=== PATIENT | male | born 1970 | race Caucasian/White ===

== ENCOUNTER → 2018-05-23 14:51 | Outpatient (CLI) | payer OTHER, SELFPAY ==
--- NOTE | 2018-05-23 14:54 | ECHOD_ITS ---
Reason For Study: Abnormal heart sounds Procedure This was a 2D Doppler, Color Flow transthoracic echocardiogram. Exam performed in department. Left Ventricle Normal size and thickness. The estimated ejection fraction is 65 %. Stage 1 diastolic dysfunction. No regional wall motion abnormalities noted. Right Ventricle Normal size and thickness. Normal systolic function. Atria Normal left atrium. Normal right atrium. Normal atrial septum. Mitral Valve The mitral valve is structurally normal. No prolapse or stenosis seen. Tricuspid Valve Normal tricuspid valve. Aortic Valve Trisinus/trileaflet aortic valve. Trivial aortic valve insufficiency. Pulmonic Valve Normal pulmonic valve. Great Vessels Normal aortic root. Normal arch. Normal inferior vena cava. Inferior vena cava collapse with sniff. Pericardium/Pleural No pericardial effusion. MMode/2D Measurements & Calculations LVIDd: 5.2 cm IVSd: 1.2 cm Ao root diam: 3.3 cm LVIDs: 3.4 cm LVPWd: 1.2 cm RVDd: 3.8 cm FS: 34.8 % LAV(MOD-bp): 59.4 ml LA A4 area: 19.7 cm2 LA dimension(2D): 3.4 cm LAV(MOD-bp) Indexed: 27.6 ml/m2 LAV(MOD-sp2): 59.6 ml LAV(MOD-sp4): 59.1 ml RA A4 area: 17.4 cm2 Doppler Measurements & Calculations MV E max ghassan: 99.8 cm/sec Lat Peak E' Ghassan: 9.6 cm/sec Med Peak E' Ghassan: 10.7 cm/sec MV A max ghassan: 114.2 cm/sec E/E' lat: 10.4 E/E' med: 9.4 MV E/A: 0.87 Ao V2 max: 168.4 cm/sec LV V1 max: 155.1 cm/sec PA V2 max: 126.3 cm/sec Ao max P.3 mmHg LV V1 max P.6 mmHg Interpretation Summary The estimated ejection fraction is 65 %. Stage 1 diastolic dysfunction. Trivial aortic valve insufficiency. There is no comparison study available. Ordering Physician: Rosanne Lewis Referring Physician: Rosanne Lewis Performed By: Alison Barron, DAVIS, RVT
== END ==
PROVIDERS: Family Provider Internal Medicine; PCP Internal Medicine; Referring Provider Internal Medicine; Visit Provider Internal Medicine
DX: R01.2 Other cardiac sounds (principal)
CPT/HCPCS: 93306

== ENCOUNTER → 2021-03-31 12:25 | Outpatient (CLI) | payer SELFPAY, OTHER ==
--- NOTE | 2021-03-31 12:32 | CT_ITS ---
STUDY: CT CHEST WITHOUT CONTRAST REASON FOR EXAM: Male, 50 years old. SCREEING RADIATION DOSAGE (If Supplied By Facility): CTDIvol = ( 12.19 ) mGy, DLP = ( 219.42 ) mGycm TECHNIQUE: Transaxial imaging was performed without the administration of intravenous contrast material. Individualized dose optimization techniques were used for this CT. COMPARISON: None. FINDINGS: Limited axial CT images of the chest were obtained through the heart for performance of coronary artery calcium scoring which will be reported by cardiology. This is not a comprehensive CT of the chest. 1.5 cm groundglass nodule in the periphery of the superior segment of the right lower lobe lungs on image 9 and follow-up CT chest is recommended in 6 months to document stability or resolution. There are some other areas of groundglass opacity within the periphery of the lower lobes and clinical correlation is recommended to exclude covert 19 pneumonia. There is no demonstrated pleural abnormality. Normal heart and pericardium. There are calcifications of the coronary arteries. Normal mediastinum. Normal hilar regions. Normal unenhanced pulmonary arteries. Normal aorta arch and descending thoracic aorta. Normal osseous structures. There is no demonstrated abnormality of the visualized upper abdomen. CT/Limited Chest CT w/CCTA IMPRESSION: Bilateral patchy groundglass opacities consistent with subsegmental atelectasis or pneumonitis. Findings may be secondary to cope and 19 pneumonia and clinical correlation is recommended. One area in the superior segment of the right lower lobe appears more nodular and follow-up CT is recommended in 6 months to document resolution. Electronically Signed: Rick Sutherland MD at 16:16 EST Tel , Service support ,
[2021-03-31 12:40] VITALS: BP 125/78; PULSE 57; RESP 14; O2SAT 98; BMI 28.5
--- NOTE | 2021-03-31 15:58 | CA.SCORE ---
Calcium Scoring Date of Study:: 03/31/21 Coronary Calcium Scoring: High-resolution Computed Tomographic imaging of the chest was performed on 03/31/2021 with particular attention paid to the coronary arteries. Images from the examination were analyzed for the presence and extent of coronary artery calcification , using coronary calcium quantification software. The patient tolerated the procedure well and there were no complications. The results of the coronary calcification analysis are provided below. Findings Coronary Artery Left Main (LM): 0.79 Left Anterior Descending (LAD): 8.34 Left Circumflex (LCX): 37.4 Right Coronary Artery (RCA): 82.7 Total Agatston Score: 129.23 Percentile Ranking: According to prepublished reference tables between 75% and 90% of patients of the same gender/similar age had the same/lower scores. Calcium Scoring Interpretation: 0 No identifiable atherosclerotic plaque. Very low cardiovascular disease risk. <5% chance of presence coronary artery disease A Negative Examination 1-10 Minimal Plaque burden. Significant coronary artery disease very unlikely. 11-100 Mild plaque burden. Likely mild or minimal coronary atherosclerosis. 101-400 Moderate plaque burden Moderate non-obstructive coronary artery disease highly likely. Over 400 Extensive plaque burden. High likelihood of at least one significant coronary stenosis (>50% diameter) Calcium Score: 101 - 400 Moderate non-obstructive coronary artery disease highly like Conclusion: Continue cardiovascular risk factor duration and care as deemed appropriate. This note was generated using a voice recognition system and there may be incorrect words, spelling or punctuation that were not noted when reviewing the office note prior to saving.
== END ==
PROVIDERS: PCP Internal Medicine; Referring Provider Internal Medicine; Visit Provider Internal Medicine
DX: Z13.6 Encounter for screening for cardiovascular disorders (principal); I10 Essential (primary) hypertension
CPT/HCPCS: 75571; 76380

== ENCOUNTER 2021-07-04 06:08 | Outpatient (CLI) | payer SELFPAY, OTHER ==
--- NOTE | 2021-07-04 13:20 | STRESSREP ---
Stress Test Report Date: 07-04-2021 Procedure: Exercise tolerance test/imaging study Indications: Abnormal cardiac function test Consent: Per the patient Procedure: The patient exercised on a Miguel protocol for 10 minutes and 30 seconds completing Stage III and 1 minute and 30 seconds of Stage IV achieving a peak heart rate of 171 bpm (101% predicted maximal heart rate) with a peak blood pressure 198/90 mmHg and a peak MET capacity of 13 METs. The baseline ECG demonstrated sinus bradycardia. The peak exercise ECG demonstrated no obvious ECG changes. There was a rare PAC/repetitive PAC during exercise and a rare PVC during recovery. The functional capacity was considered good. There was no complaint of chest discomfort during exercise or recovery. The examination was discontinued secondary to dyspnea. Impression: 1. Technically adequate (percent predicted maximal heart rate greater than 85%) exercise tolerance test 2. Peak exercise ECG with no obvious ECG changes 3. There was a rare PAC/repetitive PAC during exercise and a rare PVC during recovery 4. Nuclear images pending Myocardial perfusion imaging study: Technique: The patient was injected with 11.9 mCi of technetium 99m Cardiolite and subsequently rest SPECT Cardiolite nuclear imaging was obtained in the horizontal long, vertical long, and short axis views. The patient exercised on a Miguel protocol for 10 minutes and 30 seconds completing Stage III and 1 minute and 30 seconds of Stage IV achieving a peak heart rate of 171 bpm (101% predicted maximal heart rate) with a peak blood pressure 198/90 mmHg and a peak MET capacity of 13 METs. The patient was injected with 33.5 mCi of technetium 99m Cardiolite and subsequently stress SPECT Cardiolite nuclear imaging was obtained in the horizontal long, vertical long, and short axis views. A gated Cardiolite study at peak stress was obtained. Interpretation: Rest and stress SPECT Cardiolite nuclear imaging status post realignment, normalization, and attenuation correction, demonstrates the appearance of relative uniform tracer uptake and myocardial perfusion appearing within normal limits. There is end systolic thickening and brightening. The gated Cardiolite study demonstrates myocardial thickening and inward wall motion. The reported LVEF is 66%. Impression: 1. Rest and stress SPECT Cardiolite nuclear imaging demonstrate relative uniform tracer uptake and myocardial perfusion appearing within normal limits. 2. The gated Cardiolite study reports an LVEF of 66%. This note was generated with [employer] software. It may contain incorrect words, spelling, and punctuation that were not noted in checking the note before signing.
== END 2021-07-04 23:59 | disposition home or self-care (01) ==
PROVIDERS: PCP Internal Medicine; Referring Provider Internal Medicine; Visit Provider Internal Medicine
DX: R94.30 Abnormal result of cardiovascular function study, unspecified (principal)
CPT/HCPCS: 78452; 93017; A9500; A4216